=== PATIENT | female | born 1985 | race African-American/Black ===

== ENCOUNTER 2018-03-31 06:45 | Day surgery (SDC) | payer MEDICAID ==
[~2018-03-31] VITALS: Ht 167.6 cm; Wt 70.3 kg
[2018-03-31 07:16] LABS: ANION GAP 13.8 mmol/L (8-16); APTT 29.2 SECONDS (22.8-39.4); CALCIUM 9.4 mg/dL (8.5-10.1); CARBON DIOXIDE 26.6 mmol/L (21.0-32.0); CREATININE - SERUM 4.9 mg/dL (0.6-1.3); POTASSIUM - SERUM 3.4 mmol/L (3.5-5.1); PROTIME 12.7 SECONDS (11.6-15.0)
[2018-03-31 07:18] LABS: BASOPHILS 0.4 % (0-2); EOSINOPHILS 3.1 % (0-7); HEMATOCRIT 34.7 % (36.0-48.0); HEMOGLOBIN 11.5 g/dL (12-16); IMMATURE GRANULOCYTES 0.3 % (0-5); LYMPHOCYTES 15.3 % (15-50); MCH 29.8 pg (26.0-34.0); MCHC 33.1 g/dL (31.0-37.0); MCV 89.9 fL (80.0-100.0); MEAN PLATELET VOLUME 10.1 fL (7.4-10.4); MONOCYTES 6.6 % (2-11); NEUTROPHILS 74.3 % (40-80); PLATELET COUNT 252 10x3/uL (130-400); RBC 3.86 10x6/uL (4.00-5.40); RDW 15.3 % (11.5-14.5); WBC 11.7 10x3/uL (4.8-10.8)
[2018-03-31] MEDS ORDERED: LISINOPRIL10 MG PO (07:52)
[2018-03-31] MEDS ORDERED: ZOFRAN4 MG PO (07:52)
[2018-03-31] MEDS ORDERED: FUROSEMIDE40 MG PO (07:53)
[2018-03-31] MEDS ORDERED: HYDRALAZINE HCL50 MG PO (07:53)
[2018-03-31] MEDS ORDERED: LASIX40 MG PO (07:53)
[2018-03-31] MEDS ORDERED: CATAPRES TTS-20.2 MG (07:54)
[2018-03-31] MEDS ORDERED: REGLAN10 MG PO (07:55)
[2018-03-31] MEDS ORDERED: PRAVACHOL40 MG PO (07:55)
[2018-03-31] MEDS ORDERED: HUMALOG (07:56)
[2018-03-31] MEDS ORDERED: SODIUM BICARBO325 MG PO (07:57)
[2018-03-31 08:14] VITALS: Ht 167.6 cm; Wt 70.3 kg
[2018-03-31 09:30] LABS: HCG URINE NEGATIVE (NEGATIVE)
--- NOTE | 2018-03-31 14:35 | NUR ---
REC'D FROM . CURRENTLY SLEEPING POST BUPRENEX IN RR. FAMILY AT BEDSIDE. THRILL PALPATED LEFT ARM AVF.SCANT AMT OF BLOODY DRAINAGE NOTED ON TWO SITES.
--- NOTE | 2018-03-31 15:05 | NUR ---
DROWSY. AROUSED TO VERBAL STIMULI. APPLE JUICE AND FL TRAY BROUGHT TO PT. FAMILY AT BEDSIDE.
--- NOTE | 2018-03-31 15:15 | NUR ---
PAGED DR EMERSON. SPOKE WITH RN SHUTTLE ROUTE VEHICLE OPERATOR IN SURGERY AND RELATES HE IS SCRUBBED IN. TOLD SHUTTLE ROUTE VEHICLE OPERATOR DR EMERSON DID NOT WRITE DC ORDERS ON THIS PATIENT. RELATES SHE WILL LET HIM KNOW.
--- NOTE | 2018-03-31 16:05 | NUR ---
PAGED DR EMERSON REGARDING DC ORDERS.
--- NOTE | 2018-03-31 17:15 | NUR ---
FAMILY AT DESK INQUIRING ABOUT DISCHARGE. EXPLAINED I AM TRYING TO REACH DR EMERSON FOR ORDERS.
--- NOTE | 2018-03-31 17:20 | NUR ---
DR EMERSON CALLED AND RELATED HE WOULD ENTER DC ORDERS.
--- NOTE | 2018-03-31 18:00 | NUR ---
WRITTEN AND VERBAL DC INST. GIVEN TO PT ALONG WITH RX. VERBALIZED UNDERSTANDING.
--- NOTE | 2018-03-31 18:25 | NUR ---
DC'D HOME WITH FAMILY VIA PRIVATE VEHICLE. TAKEN TO VEHICLE VIA WC. STABLE AT TIME OF DC.
--- NOTE | 2018-04-03 14:42 | OP ---
PATIENT NAME: BLANQUITA BORJAS MEDICAL RECORD: [id number] :89 LOCATION:D[facility] ADMISSION DATE: SURGEON: ENIO EMERSON MD DATE OF OPERATION: 03/31/2018 PREOPERATIVE DIAGNOSIS: End-stage renal disease without chronic access for hemodialysis. POSTOPERATIVE DIAGNOSES: End-stage renal disease without chronic access for hemodialysis with numerous side branches off the antebrachial vein as well as off the cephalic vein. PROCEDURES: 1. Creation of a left radiocephalic primary arteriovenous fistula for hemodialysis access. 2. Open ligation of side branches times 8. SURGEON: Enio Emerson MD LEATHER DRESSER: None. BLOOD LOSS: Minimal. ANESTHESIA: General. COMPLICATIONS: None. I saw the patient in the holding area. The patient is right-handed. She is currently on dialysis 3 times a week. The patient has small arms and appears that her veins are small as well. I told her that I would examine her left upper extremity under ultrasound once she was asleep and I would determine whether she was a candidate for a primary arteriovenous fistula or a graft. The risks, possible complications and alternatives to the procedure were explained to the patient. She elects to proceed. The discussion specifically included, but was not limited to, bleeding requiring emergency reoperation, infection, nerve injury, paresthesias, steal syndrome and the possibility that the fistula would not mature to the point where it can be used for hemodialysis access. We also discussed the probability of the need for additional procedures such as balloon angioplasty in the future. OPERATIVE COURSE: The patient was conveyed to the operating room electively on 03/31/2018. General anesthesia was induced by the anesthesia staff. The left upper extremity was abducted at 90 degrees to the patient's trunk. The left upper extremity was sterilely prepped and draped. Utilizing a sterile hand held ultrasound, I interrogated the left upper extremity. There appeared to be moderately sized good quality cephalic vein in the arm. There appeared to be a good quality moderately sized brachial vein in the forearm. There was surprisingly a moderately sized good quality cephalic vein at the wrist. An incision was accomplished on the volar aspect of the distal forearm on to the wrist. This is overlying the radial artery. I dissected down to the radial artery. The paired radial veins were ligated doubly and excised. I then dissected down to the cephalic vein. This was ligated distally. It was transected proximally. I was able to visualize the radial nerves, which were retracted for protection and which were undamaged during the operative procedure. I had beveled the cephalic vein. Control was obtained on the radial OPERATIVE REPORT [id number] BLANQUITA BORJAS with vessel loops. A longitudinal arteriotomy was accomplished. An side-to-end arterial to venous anastomosis was then fashioned with a running 7-0 Prolene suture. I then flushed out through the cephalic vein. There was a good thrill. Utilizing the handheld ultrasound, I interrogated the antebrachial vein as well as the cephalic vein at the wrist as well as the cephalic vein in the arm. I identified 8 side branches. Small incisions were accomplished over the side branches. I dissected down to the cephalic vein through each of these incisions and identified the side branches. Through 7 incisions, I was able to ligate the side branches with small silk ties as well as 3-0 Vicryl sutures. One of the side branches was on the dorsal aspect of the forearm. The incisions were closed in the following manner. The small incisions, where I ligated the side branches, were closed with interrupted 3-0 Vicryl intracuticular sutures. The incision at the radiocephalic fistula site was closed with interrupted 3-0 Vicryl for the deep dermis as well as a running intracuticular 3-0 Vicryl for the skin. Sterile dressings were applied. The patient was then extubated and conveyed to the post-anesthesia care unit where she was in stable condition. Our plan is that she will be dismissed home today on a narcotic analgesic. I will see her in my office in 3-4 weeks. TRANSINT:[id number] Voice Confirmation ID: [id number] DOCUMENT ID: [id number] ENIO EMERSON MD at [id number] CC: KOBY SARABIA MD and PASCUAL JIN [id number] DICTATION DATE: 04/01/18927 [employer] SALES MANAGER: 04/01/18 1016 [facility] 03/31/18 [facility] [address] [place] [address]
== END 2018-03-31 18:25 | disposition home or self-care (01) ==
LOC: D.OPS 06:45
PROVIDERS: Internal Medicine Nephrology; Surgery
DX: N18.6 End stage renal disease (principal)

== ENCOUNTER → 2019-05-18 12:27 | Outpatient (CLI) | payer MEDICARE ==
[2018-03-31 08:14] VITALS: BMI 25.0
[~2019-05-18 12:27] MED LIST: CATAPRES TTS-20.2 MG; FUROSEMIDE40 MG PO; HUMALOG; HYDRALAZINE HCL50 MG PO; LASIX40 MG PO; LISINOPRIL10 MG PO; PRAVACHOL40 MG PO; REGLAN10 MG PO; SODIUM BICARBO325 MG PO; ZOFRAN4 MG PO
== END | disposition home or self-care (01) ==
LOC: D.MRI 12:27
PROVIDERS: ATTEND Nurse Practitioner Family
DX: M25.519 Pain in unspecified shoulder (principal); M25.511 Pain in right shoulder